=== PATIENT | male | born 1985 | race Caucasian/White ===

== ENCOUNTER 2017-08-09 18:05 | Emergency (ER) | payer OTHER ==
[~2017-08-09] VITALS: Ht 177.8 cm; Wt 81.6 kg
[2017-08-09 18:05] VITALS: BP 138/79
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
[2017-08-09] MEDS ORDERED: GELATIN SPONGE SIZE 12-7MM SPONGE. TP ONE (18:45)
[2017-08-09] MEDS ORDERED: KETOROLAC 30 MG/ML INJ. IV ONE (18:45)
[2017-08-09] MEDS ORDERED: NAPR500T PO (18:55)
--- NOTE | 2017-08-10 08:20 | RAD ---
Right ring finger, 3 views, 08/09/2017: History: Laceration A partially radiopaque bandage is projected over the distal aspect of the finger. No underlying fracture or dislocation is identified. IMPRESSION: No acute bony abnormality is detected.
== END 2017-08-09 19:00 | disposition home or self-care (01) ==
LOC: ER 18:05
DX: S61.304A Unspecified open wound of right ring finger with damage to nail, initial encounter (principal); W26.8XXA Contact with other sharp object(s), not elsewhere classified, initial encounter; Y93.89 Activity, other specified; Y92.89 Other specified places as the place of occurrence of the external cause; Y99.8 Other external cause status
CPT/HCPCS: 73140; 96374; 99284; J1885

== ENCOUNTER 2018-01-09 20:23 | Emergency (ER) | payer SELFPAY, OTHER ==
[2018-01-09 21:22] LABS: ADD MAN DIFF? NO
[2018-01-09 21:25] LABS: BASO # 0.1 x10^3/uL (0.0-0.2); BASO % 1 % (0-3); EOS # 0.1 x10^3/uL (0.0-0.7); EOS % 1 % (0-3); HEMATOCRIT 44.7 % (39.0-53.0); HEMOGLOBIN 15.5 g/dL (13.0-17.5); LYMPH # 3.3 x10^3/uL (1.0-4.8); LYMPH % 33 % (24-48); MEAN CORPUSCULAR HEMOGLOBIN 33 pg (25-35); MEAN CORPUSCULAR HGB CONC 35 g/dL (31-37); MEAN CORPUSCULAR VOLUME 95 fL (79-100); MONO # 0.7 x10^3/uL (0.0-1.1); MONO % 7 % (0-9); NEUT # 5.7 x10^3uL (1.8-7.7); NEUT % 58 % (31-73); PLATELET COUNT 264 x10^3/uL (140-400); RED BLOOD COUNT 4.69 x10^6/uL (4.30-5.70); RED CELL DISTRIBUTION WIDTH 12.9 % (11.5-14.5); WHITE BLOOD COUNT 9.7 x10^3/uL (4.0-11.0)
[2018-01-09] MEDS: ONDANSETRON PF 4 MG/2 ML VIAL. IV ×2 (21:29)
[2018-01-09] MEDS: KETOROLAC 30 MG/ML INJ. IV ×2 (21:30)
[2018-01-09 21:32] LABS: ANION GAP 6 (6-14); BLOOD UREA NITROGEN 14 mg/dL (8-26); BUN/CREATININE RATIO 14 (6-20); CALCIUM 8.6 mg/dL (8.5-10.1); CARBON DIOXIDE 33 mmol/L (21-32); CHLORIDE 103 mmol/L (98-107); GFR 87.7; GLUCOSE 104 mg/dL (70-99); POTASSIUM 4.1 mmol/L (3.5-5.1); SODIUM 142 mmol/L (136-145)
[2018-01-09] MEDS: fentaNYL PF VIAL 100 MCG/2 ML VIAL IV ×2 (21:32)
[2018-01-09] MEDS: LIDO:MAALOX:DONNATAL 1:1:1 15 ML SINGLE DOSE SWSW ×2 (21:33)
[2018-01-09 21:38] LABS: ALBUMIN/GLOBULIN RATIO 1.1 (1.0-1.7); ALK PHOS 63 U/L (46-116); ALT (SGPT) 23 U/L (16-63); AST (SGOT) 25 U/L (15-37); LIPASE 110 U/L (73-393); MAGNESIUM 2.1 mg/dL (1.8-2.4); TOTAL BILIRUBIN 0.3 mg/dL (0.2-1.0); TOTAL PROTEIN 7.5 g/dL (6.4-8.2)
[2018-01-09] MEDS ORDERED: CONTRAST GIVEN MC ×2 (21:45)
[2018-01-09 21:48] LABS: BILIRUBIN,URINE NEGATIVE (NEG); CLARITY,URINE CLOUDY; COLOR,URINE YELLOW; GLUCOSE,URINE NEGATIVE (NEG); NITRITE,URINE NEGATIVE (NEG); PH,URINE 7.5; PROTEIN,URINE 30 mg/dL (NEG-TRACE); UROBILINOGEN,URINE 0.2 mg/dL (0.2 mg/dL)
[2018-01-09 21:58] LABS: AMORPHOUS SEDIMENT,UR PRESENT /HPF; BACTERIA,URINE 0 /HPF (0-FEW); RBC,URINE 0 /HPF (0-2); WBC,URINE 0 /HPF (0-4)
[2018-01-09] MEDS: IOHEXOL 300 MG/ML 100ML VIAL. IV ×2 (22:05)
[2018-01-09] MEDS: FAMOTIDINE 20 MG TABLET. PO ×2 (22:43)
[2018-01-09] MEDS: HYDROcodone/APAP 5/325MG 1 TAB TABLET PO ×2 (22:43)
[2018-01-09] MEDS: HYOSCYAMINE 0.125 MG TAB.RAPDIS PO ×2 (22:44)
== END 2018-01-09 23:34 | disposition home or self-care (01) ==
LOC: ER 20:23
DX: K52.9 Noninfective gastroenteritis and colitis, unspecified (principal); F12.10 Cannabis abuse, uncomplicated; F11.10 Opioid abuse, uncomplicated
CPT/HCPCS: 36415; 74177; 80053; 81001; 83690; 83735; 85025; 96374; 96375; 99285-25; J1885; J2405; J3010; Q9967

== ENCOUNTER 2018-04-11 21:54 | Emergency (ER) | payer SELFPAY ==
[2018-04-11 22:23] LABS: BILIRUBIN,URINE SMALL (NEG); CLARITY,URINE CLOUDY; COLOR,URINE AMBER; GLUCOSE,URINE NEGATIVE (NEG); NITRITE,URINE NEGATIVE (NEG); PH,URINE 5.5; PROTEIN,URINE 100 mg/dL (NEG-TRACE)
[2018-04-11 22:32] LABS: BACTERIA,URINE FEW /HPF (0-FEW); RBC,URINE 20-40 /HPF (0-2); SQUAMOUS EPITHELIAL CELL,UR FEW /LPF; WBC,URINE TNTC /HPF (0-4)
[2018-04-11] MEDS: metroNIDAZOLE 500 MG TABLET PO (22:35)
[2018-04-11] MEDS: AZITHROMYCIN 250 MG TABLET. PO (22:36)
[2018-04-11] MEDS: cefTRIAXone IM 250 MG VIAL IM (22:37)
== END 2018-04-11 22:56 | disposition home or self-care (01) ==
LOC: ER 21:54
DX: R36.9 Urethral discharge, unspecified (principal); F12.10 Cannabis abuse, uncomplicated; F11.10 Opioid abuse, uncomplicated; Z79.2 Long term (current) use of antibiotics; Z79.899 Other long term (current) drug therapy
CPT/HCPCS: 36415; 81001; 87086; 87491; 87591; 96372; 99284; J0696; Q0144

== ENCOUNTER 2019-05-05 01:09 | Emergency (ER) | payer SELFPAY ==
[~2019-05-05] VITALS: Ht 177.8 cm; Wt 79.4 kg
[~2019-05-05 01:09] MED LIST: DICY10CA53 PO; HYDR-3164 PO; NAPR-683 PO; OMEP20TA63 PO
[2019-05-05 01:30] LABS: BASO % 1 % (0-3); EOS # 0.1 x10^3/uL (0.0-0.7); EOS % 2 % (0-3); HEMATOCRIT 42.4 % (39.0-53.0); LYMPH # 2.4 x10^3/uL (1.0-4.8); LYMPH % 29 % (24-48); MEAN CORPUSCULAR HEMOGLOBIN 33 pg (25-35); MEAN CORPUSCULAR HGB CONC 35 g/dL (31-37); MEAN CORPUSCULAR VOLUME 93 fL (79-100); MONO # 0.9 x10^3/uL (0.0-1.1); MONO % 11 % (0-9); NEUT % 59 % (31-73); PLATELET COUNT 282 x10^3/uL (140-400); RED BLOOD COUNT 4.57 x10^6/uL (4.30-5.70); RED CELL DISTRIBUTION WIDTH 12.9 % (11.5-14.5); WHITE BLOOD COUNT 8.5 x10^3/uL (4.0-11.0)
[2019-05-05] MEDS ORDERED: ONDANSETRON PF 4 MG/2 ML VIAL. IV ONE (01:30)
[2019-05-05] MEDS ORDERED: fentaNYL PF VIAL 100 MCG/2 ML VIAL IV ONE (01:30)
[2019-05-05 01:40] LABS: CALCIUM 9.5 mg/dL (8.5-10.1); GFR 86.6; POTASSIUM 3.5 mmol/L (3.5-5.1)
[2019-05-05 01:46] LABS: ALBUMIN 3.7 g/dL (3.4-5.0); TOTAL BILIRUBIN 0.4 mg/dL (0.2-1.0); TOTAL PROTEIN 7.4 g/dL (6.4-8.2)
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
[2019-05-05] MEDS ORDERED: MORPHINE SULFATE 4 MG/ML VIAL. IV ONE ×3 (02:45→04:30)
--- NOTE | 2019-05-05 02:49 | RAD ---
INDICATION: Trauma COMPARISON: None. TECHNIQUE: Axial CT images obtained through the head, face and cervical spine. One or more of the following individualized dose reduction techniques were utilized for this examination: 1. Automated exposure control; 2. Adjustment of the mA and/or kV according to patient size; 3. Use of iterative reconstruction technique. FINDINGS: Head: Subtle is is identified. No midline shift. Suprasellar cistern is not effaced. There is likely a small amount of subdural fluid in the right frontal region measuring up to approximately 5 mm in thickness. This is at one of the regions of pneumocephalus. Fractures are seen through the skull base extending into the facial region. Cervical spine: Fusion defect posterior arch of C1. No evidence of malalignment. A definite acute fracture line is not seen. Facial: Multiple facial fractures are identified with adjacent pneumocephalus. This includes comminuted fracture through the frontal sinus with displacement at the inner table of the calvarium. Comminuted fracture of the right maxillary sinus with blood within the sinus. There is air seen adjacent to and posterior to the orbits right greater than left. Odontogenic disease. Air within the soft tissues throughout the face. Buckling of the nasal septum with fluid in the area. Displaced fracture of nasal bone is suspected. Buckling of the medial orbital wall bilaterally concerning for fracture. IMPRESSION: 1. No definite cervical spine fracture. 2. Pneumocephalus is identified with suspicion for a small amount of subdural fluid. This pneumocephalus is likely secondary to calvarial and skull base fractures. May helpful to obtain a follow-up to ensure that there is not increasing subdural fluid to suggest subdural hematoma although there may be a trace amount at this time. No midline shift associated. 3. Extensive fractures throughout the face as well as the skull base. This includes comminuted fracture extending through the frontal sinus with associated pneumocephalus. There is also bilateral orbital wall fractures as well as fractures of the maxillary sinuses bilaterally. There is air posterior to the bilateral globes as well as air within the face and swelling. 4. Comminuted fracture involving the nasal bone and nasal septum. Electronically signed by: Theodore Roldan MD (05/05/2019 2:46 AM) [facility]
[2019-05-05 03:59] VITALS: BP 165/98
== END 2019-05-05 04:11 | disposition short-term general hospital (02) ==
LOC: ER 01:09 → EEVIPCON 01:09 → ER 04:11
DX: S02.40CA Maxillary fracture, right side, initial encounter for closed fracture (principal); S02.19XA Other fracture of base of skull, initial encounter for closed fracture; S02.0XXA Fracture of vault of skull, initial encounter for closed fracture; S02.2XXA Fracture of nasal bones, initial encounter for closed fracture; Y04.8XXA Assault by other bodily force, initial encounter; Y93.89 Activity, other specified; Y92.89 Other specified places as the place of occurrence of the external cause; Y99.8 Other external cause status
CPT/HCPCS: 36415; 70450; 70486; 72125; 80053; 85025; 96365; 96375; 96376; 99285; G0480; J0690; J2270; J2405; J3010

== ENCOUNTER 2019-08-02 11:26 | Emergency (ER) | payer SELFPAY ==
[~2019-08-02] VITALS: Ht 177.8 cm; Wt 77.1 kg
[2019-08-02 12:00] VITALS: BP 160/75
[2019-08-02] MEDS ORDERED: oxyCODONE/APAP 5/325 1 TAB TABLET PO ONE (12:15)
[2019-08-02] MEDS ORDERED: KETOROLAC 30 MG/ML VIAL. IM ONE (12:15)
[2019-08-02] MEDS ORDERED: OXYC1TAB15 PO (12:16)
--- NOTE | 2019-08-02 16:22 | PHYS DOC ---
Past Medical History Past Medical History: No Pertinent History Past Surgical History: Other Additional Past Surgical Histo: L arm FX Alcohol Use: Occasionally Drug Use: Cocaine, Marijuana, Opiates Social History Narrative: LAST USE YESTERDAY Adult General Chief Complaint Chief Complaint: HAND PROBLEM HPI HPI Patient is a 34 year old [male presents with chief complaint of hand pain and tingling more on the left. 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 Of note he is an intermittent heroin user he did shoot IV heroin into his right elbow a few days ago as well but the primary location of pain is more on the left hand than the right hand anyway. No fever at all and again no neck pain at all. Review of Systems Review of Systems Constitutional: Denies fever or chills [] Eyes: Denies change in visual acuity, redness, or eye pain [] HENT: Denies nasal congestion or sore throat [] Respiratory: Denies cough or shortness of breath [] Cardiovascular: No additional information not addressed in HPI [] GI: Denies abdominal pain, nausea, vomiting, bloody stools or diarrhea [] : Denies dysuria or hematuria [] Musculoskeletal: Integument: Neurologic: No weakness All other systems were reviewed and found to be within normal limits, except as documented in this note. Current Medications Current Medications Current Medications Medications (Trade) Dose Ordered Sig/[facility] Start Time Stop Time Status Last Admin Dose Admin Ketorolac Tromethamine (Toradol 30mg Vial) 30 mg 1X ONCE 08/02/19 12:15 08/02/19 12:16 DC 08/02/19 12:37 30 MG Oxycodone/ Acetaminophen (Percocet 5/325) 2 tab 1X ONCE 08/02/19 12:15 08/02/19 12:16 DC 08/02/19 12:37 2 TAB Allergies Allergies Allergies Coded Allergies Type Severity Reaction Last Updated Verified No Known Drug Allergies 08/09/17 No Physical Exam Physical Exam Constitutional: Well developed, well nourished, no acute distress, non-toxic appearance. [] HENT: Normocephalic, atraumatic, bilateral external ears normal, oropharynx moist, no oral exudates, nose normal. [] Eyes: PERRLA, EOMI, conjunctiva normal, no discharge. [] Neck: Normal range of motion, no tenderness, supple, no stridor. [] Abdomen: Bowel sounds normal, soft, no tenderness, no masses, no pulsatile masses. [] Skin: Warm, dry, no erythema, no rash. [] Back: No tenderness, no CVA tenderness. [] Extremities:b there is tenderness to palpation throughout the left hand no erythema or induration is identified , no clubbing, ROM intact, no edema. [] . There is a small bump overlying the right at the cubital vein no edema is noted in the right or left upper extremity. Positive phinels' test left wrist. no oslers node no splinter hemorhages Neurologic: Alert and oriented X 3, normal motor function, normal sensory function, no focal deficits noted. [] Psychologic: Affect normal, judgement normal, mood normal. [] Current Patient Data Vital Signs Vital Signs Date Time Temp Pulse Resp B/P (MAP) Pulse Ox O2 Delivery O2 Flow Rate FiO2 08/02/19 12:37 16 97 Room Air 08/02/19 12:00 97.9 86 160/75 (103) 97.9 EKG EKG [] Radiology/Procedures Radiology/Procedures [] Course & Med Decision Making Course & Med Decision Making Pertinent Labs and Imaging studies reviewed. (See chart for details) []34 yo m intermittent heroin user primry complaint left hand pain sounds like neuropathic pain,feeels hand is . positive ttp over carpal tunnel left wrist reproduces pain. is a model home sales greeter, has repetitive use he tells me. more mild symptoms right hand considered multiple other etiologies in ddx, including manufacturing systems engineer pathology however no fever normal strength no neck ttp no spinal ttp noted. no signs of endocarditis stigmata on examination. good pulses. no swelling. trial of wrist immobizilation pain control limit use of hand as much as posible, return precautions discussed specifically for any new or progressive symptoms. Dragon Disclaimer Dragon Disclaimer This electronic medical record was generated, in whole or in part, using a voice recognition dictation system. Departure Departure Impression: Primary Impression: Numbness and tingling Disposition: 01 HOME, SELF-CARE Condition: STABLE Patient Instructions: Neurapraxia Scripts Oxycodone/Apap 5-325 (PERCOCET 5-325 MG TABLET ) 1 Each Tablet 1-2 EACH PO PRN TID PRN for PAIN, #15 TAB pain Prov: NASEEM ERICKSON MD 08/02/19 NASEEM ERICKSON MD Aug 02, 2019 16:22
== END 2019-08-02 12:44 | disposition home or self-care (01) ==
LOC: ER 11:26
DX: R20.2 Paresthesia of skin (principal); M79.642 Pain in left hand
CPT/HCPCS: 29125; 96372; 99283; J1885

== ENCOUNTER 2021-03-03 21:29 | Emergency (ER) | payer SELFPAY ==
[~2021-03-03] VITALS: Ht 177.8 cm; Wt 100.0 kg
[~2021-03-03 21:29] MED LIST changes: +OXYC1TAB15 PO
[2021-03-03 21:30] VITALS: BP 137/55
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
== END 2021-03-03 23:05 | disposition home or self-care (01) ==
LOC: ER 21:29
DX: F10.129 Alcohol abuse with intoxication, unspecified (principal); R06.02 Shortness of breath; E86.0 Dehydration; R05 Cough; F17.200 Nicotine dependence, unspecified, uncomplicated; F12.90 Cannabis use, unspecified, uncomplicated; F14.90 Cocaine use, unspecified, uncomplicated; Z98.890 Other specified postprocedural states
CPT/HCPCS: 99283

== ENCOUNTER 2021-10-16 18:19 | Emergency (ER) | payer SELFPAY ==
[~2021-10-16] VITALS: Ht 177.8 cm; Wt 81.8 kg
[2021-10-16 19:20] VITALS: BP 139/62
[2021-10-16 20:42] LABS: BASO % 0 % (0-3); EOS # 0.2 x10^3/uL (0.0-0.7); EOS % 2 % (0-3); HEMATOCRIT 44.6 % (39.0-53.0); HEMOGLOBIN 15.2 g/dL (13.0-17.5); LYMPH # 1.8 x10^3/uL (1.0-4.8); LYMPH % 15 % (24-48); MEAN CORPUSCULAR HEMOGLOBIN 32 pg (25-35); MEAN CORPUSCULAR HGB CONC 34 g/dL (31-37); MEAN CORPUSCULAR VOLUME 94 fL (79-100); MONO # 0.7 x10^3/uL (0.0-1.1); MONO % 6 % (0-9); NEUT # 9.7 x10^3/uL (1.8-7.7); NEUT % 78 % (31-73); PLATELET COUNT 262 x10^3/uL (140-400); RED BLOOD COUNT 4.72 x10^6/uL (4.30-5.70); RED CELL DISTRIBUTION WIDTH 12.3 % (11.5-14.5); WHITE BLOOD COUNT 12.4 x10^3/uL (4.0-11.0)
--- NOTE | 2021-10-16 20:44 | PHYS DOC ---
Past Medical History Past Medical History: No Pertinent History Past Surgical History: Other Additional Past Surgical Histo: L arm FX Smoking Status: Current Every Day Smoker Alcohol Use: None Drug Use: Cocaine, Marijuana, Opiates General Adult EDM: Chief Complaint: INSECT BITE HPI: HPI: Patient is a 36 year old male who presents with spider bite to left forearm. Patient states he noticed the bite 2 days ago and it is increasingly gotten worse. Wound is blackened with erythema around the outside of the wound. Patient reports pain 8/10, but only with touching it. Patient reports taking ibuprofen last night which helped some. Afebrile. Patient has history of anxiety. Last tetanus 2 years ago. Patient is not vaccinated for COVID-19. Review of Systems: Review of Systems: ROS At least 10 ROS systems have been reviewed and are negative except as documented in the HPI. General: Negative except as outlined in HPI above. Skin: Negative except as outlined in HPI above. HEENT: Negative except as outlined in HPI above. Neck: Negative except as outlined in HPI above. Respiratory: Negative except as outlined in HPI above.. Cardiovascular: Negative except as outlined in HPI above. Abdomen: Negative except as outlined in HPI above. : Negative except as outlined in HPI above. Back/MSK: Negative except as outlined in HPI above. Neuro: Negative except as outlined in HPI above. Psych: Negative except as outlined in HPI above. Heart Score: C/O Chest Pain: No Risk Factors: Risk Factors: DM, Current or recent (<one month) smoker, HTN, HLP, family history of CAD, obesity. Risk Scores: Score 0 - 3: 2.5% MACE over next 6 weeks - Discharge Home Score 4 - 6: 20.3% MACE over next 6 weeks - Admit for Clinical Observation Score 7 - 10: 72.7% MACE over next 6 weeks - Early Invasive Strategies Allergies: Allergies: Allergies Coded Allergies Type Severity Reaction Last Updated Verified No Known Drug Allergies 08/09/17 No Physical Exam: PE: Constitutional: Well developed, well nourished, no acute distress, non-toxic appearance. [] HENT: Normocephalic, atraumatic, bilateral external ears normal, oropharynx moist, no oral exudates, nose normal. [] Eyes: PERRLA, EOMI, conjunctiva normal, no discharge. [] Neck: Normal range of motion, no tenderness, supple, no stridor. [] Cardiovascular:Heart rate regular rhythm, no murmur [] Lungs & Thorax: Bilateral breath sounds clear to auscultation [] Abdomen: Bowel sounds normal, soft, no tenderness, no masses, no pulsatile m asses. [] Skin: Warm, dry, erythema and swelling, left forearm, firm, eschar Back: No tenderness, no CVA tenderness. [] Extremities: No tenderness, no cyanosis, no clubbing, ROM intact, no edema. [] Neurologic: Alert and oriented X 3, normal motor function, normal sensory function, no focal deficits noted. [] Psychologic: Affect normal, judgement normal, mood normal. [] Current Patient Data: Vital Signs: Vital Signs Date Time Temp Pulse Resp B/P (MAP) Pulse Ox O2 Delivery O2 Flow Rate FiO2 10/16/21 19:20 98.6 85 18 139/62 (87) 95 Room Air 98.6 EKG: EKG: [] Radiology/Procedures: Radiology/Procedures: [] Course & Med Decision Making: Course & Med Decision Making Pertinent Labs and Imaging studies reviewed. (See chart for details) [] 36-year-old male presents with bite to left forearm. Work-up in ER consisted of labs, urinalysis. Pain treated in ER. Patient is afebrile. Patient being sent home with antibiotics to treat infection. Patient given first dose here. Patient given clinic resources due to not having PCP. Advised patient he needs to call make a follow-up appointment tomorrow to have wound evaluated. Gino Disclaimer: Gino Disclaimer: This electronic medical record was generated, in whole or in part, using a voice recognition dictation system. Departure Departure Impression: Primary Impression: Spider bite wound Qualified Codes: T63.304A - Toxic effect of unspecified spider venom, undetermined, initial encounter Disposition: HOME / SELF CARE / HOMELESS Condition: STABLE Referrals: NO PCP (PCP) Patient Instructions: Spider Bite, [id number] Additional Instructions: You were seen in the ED for spider bite to right forearm. I am sending you home with antibiotics to treat. You were given first does in the the ED. I have given you a list of clinics to call for follow up.Please call tomorrow to make an appointment for follow up and further management. Please return to the ED with worseing symptoms or concerns. EMERGENCY DEPARTMENT GENERAL DISCHARGE INSTRUCTIONS THANK YOU for coming to [facility] Emergency Department (ED) today and trusting us with your care. We trust that you had a positive experience in our Emergency Department. If you wish to speak to the department Management you can contact the departmental secretary at . YOUR FOLLOW UP INSTRUCTIONS ARE FOLLOWS: Do you have a private doctor? If you do not have a private doctor, please ask for a resource list of physicians or clinics that may be able to assist you with follow up care. The Emergency Physician has interpreted your x-rays. The X-ray specialist will also review them. If there is a change in the findings you will be notified in 48 hours when at all possible. A lab test or lab culture may have been done, your results will be reviewed and you will be notified if you need a change in treatment. ADDITIONAL INSTRUCTIONS AND INFORMATION Your care today has been supervised by a physician who is specially trained in emergency care. Many problems require more than one evaluation for a complete diagnosis and treatment. We recommend that you schedule your follow up appointment as recommended to ensure complete treatment of your illness or injury. If you are unable to obtain follow up care and continue to have a problem, or if your condition worsens we recommend that you return to the ED. We are not able to safely determine your condition over the phone nor are we able to give sound medical advice over the phone. For these safety reasons, if you call for medical advice we will ask you to come to the ED for further evaluation If you have any questions regarding these discharge instructions please call the ED at . SAFETY INFORMATION In the interest of safety, wellness, and injury prevention; we encourage you to wear your seatbelt, if you smoke; quit smoking, and we encourage your family to use protective helmet for bicycling and other sporting events that present an increased risk for head injury. IF YOUR SYMPTOMS WORSEN OR NEW SYMPTOMS DEVELOP, OR YOU HAVE CONCERNS ABOUT YOUR CONDITION; OR IF YOUR CONDITION WORSENS WHILE YOU ARE WAITING FOR YOUR FOLLOW UP APPOINTMENT; EITHER CONTACT YOUR PRIMARY CARE DOCTOR, THE PHYSICIAN WHOSE NAME AND NUMBER YOU WERE GIVEN, OR RETURN TO THE ED IMMEDIATELY. RYLIE BUNN APRN Oct 16, 2021 20:44
[2021-10-16] MEDS ORDERED: fentaNYL PF VIAL 100 MCG/2 ML VIAL IVP ONE (20:45)
[2021-10-16] MEDS ORDERED: ONDANSETRON PF 4 MG/2 ML VIAL. IVP ONE (20:45)
[2021-10-16 20:49] LABS: BILIRUBIN,URINE NEGATIVE (NEG); CLARITY,URINE CLEAR; COLOR,URINE YELLOW; NITRITE,URINE NEGATIVE (NEG); PH,URINE 5.5 (<5.0-8.0); PROTEIN,URINE NEGATIVE (NEG-TRACE); UROBILINOGEN,URINE 0.2 mg/dL (0.2 mg/dL)
[2021-10-16 20:56] LABS: BACTERIA,URINE 0 /HPF (0-FEW); RBC,URINE 0 /HPF (0-2); WBC,URINE 0 /HPF (0-4)
[2021-10-16] MEDS ORDERED: CLINDAMYCIN HCL 150 MG CAPSULE. PO ONE (21:15)
[2021-10-16] MEDS ORDERED: CLIN150C16 PO (21:48)
[2021-10-16 22:04] LABS: CALCIUM 8.8 mg/dL (8.5-10.1); CREATININE 0.9 mg/dL (0.7-1.3); GFR 96.6
[2021-10-16 22:10] LABS: ALBUMIN 3.7 g/dL (3.4-5.0); TOTAL BILIRUBIN 0.4 mg/dL (0.2-1.0); TOTAL PROTEIN 7.4 g/dL (6.4-8.2)
--- NOTE | 2021-10-17 03:12 | EKG ---
[facility] [address] [place] [address] Test Date: 2021-10-16 Test Time: 20:37:38 Pat Name: KANIKA BRUNER Department: Room: Gender: M Wedding Makeup Artist: : 1985 Requested By: RYLIE BUNN Order Number: [id number] Reading MD: Deny Floyd Measurements Intervals [place] Rate: 87 P: NE: QRS: 39 QRSD: 96 T: 38 QT: 338 QTc: 407 Interpretive Statements SINUS RHYTHM Electronically Signed On 10-21-2021 9:34:02 DATA LIBRARIAN by Deny Floyd
== END 2021-10-16 22:30 | disposition home or self-care (01) ==
LOC: ER 18:19
DX: T63.301A Toxic effect of unspecified spider venom, accidental (unintentional), initial encounter (principal); F17.200 Nicotine dependence, unspecified, uncomplicated; Y92.89 Other specified places as the place of occurrence of the external cause
CPT/HCPCS: 36415; 80053; 81001; 82550; 83605; 85025; 93005; 96374; 96375; 99284; J2405; J3010

== ENCOUNTER 2022-01-26 19:42 | Emergency (ER) | payer SELFPAY ==
[~2022-01-26] VITALS: Ht 177.8 cm; Wt 84.0 kg
[~2022-01-26 19:42] MED LIST changes: +CLIN150C16 PO
[2022-01-26 20:05] VITALS: BP 176/96
--- NOTE | 2022-01-26 20:19 | PHYS DOC ---
Past Medical History Past Medical History: No Pertinent History Additional Past Medical Histor: BROKEN RIBS Past Surgical History: Other Additional Past Surgical Histo: L arm FX Smoking Status: Current Every Day Smoker Alcohol Use: None Drug Use: Cocaine, Marijuana, Opiates General Adult EDM: Chief Complaint: RIB PAIN HPI: HPI: Patient is a 36 year old male who presents here with left sided rib pain, for about 1 week. He was helping build a deck about a week ago, and he fell against one of the 2 x 10 pieces of wood. No other injury or trauma since that time. He denies any chest pressure. Denies dyspnea. Denies pleuritic pain. Denies cough or mopped assist. He denies abdominal pain, denies urinary symptoms. Denies constipation or diarrhea. He has taken [id number] medications with no relief. He reports that the pain is worse today. The pain is worse with movement, palpation. He has not sought care or evaluation until today. Review of Systems: Review of Systems: Constitutional: Denies fever or chills. [] HENT: Denies nasal congestion or sore throat. [] Respiratory: Denies cough or shortness of breath. [] Cardiovascular: Denies chest pain pressure, denies peripheral edema. Left anterior and lateral rib pain. GI: Denies abdominal pain, nausea, vomiting, or diarrhea : Denies urinary symptoms, denies gross hematuria Musculoskeletal: Reports left-sided anterior and lateral rib pain Integument: Denies rash, denies lacerations, abrasions or contusions Neurologic: Denies headache, focal weakness or sensory changes. [] Psychiatric: Denies depression or anxiety. [] Heart Score: C/O Chest Pain: No Risk Factors: Risk Factors: DM, Current or recent (<one month) smoker, HTN, HLP, family history of CAD, obesity. Risk Scores: Score 0 - 3: 2.5% MACE over next 6 weeks - Discharge Home Score 4 - 6: 20.3% MACE over next 6 weeks - Admit for Clinical Observation Score 7 - 10: 72.7% MACE over next 6 weeks - Early Invasive Strategies Allergies: Allergies: Allergies Coded Allergies Type Severity Reaction Last Updated Verified No Known Drug Allergies 08/09/17 No Physical Exam: PE: Constitutional: Well developed, well nourished, no acute distress, non-toxic appearance. [] HENT: Normocephalic, atraumatic Eyes: Conjunctiva normal, no discharge. [] Neck: Trachea midline, no JVD, no tenderness Cardiovascular:Heart rate regular rhythm, +2 radial pulses bilaterally, warm and well-perfused, no edema Lungs & Thorax: Lungs are clear to auscultation bilaterally without rales, rhonchi, wheezes, inspiratory splinting noted. Palpation of the left anterior and lateral lower ribs reproduces tenderness. No palpable crepitus or step-offs or subcutaneous emphysema. Equal chest rise. No evidence of thorax or chest wall trauma, contusion, abrasion or laceration. Abdomen: Abdomen is soft, nondistended, nontender to palpation. No CVA tenderness. No flank abdominal ecchymoses. No palpable masses organomegaly Skin: Warm, dry, no erythema, no rash. No lacerations or abrasions or ecchymoses noted. Back: No tenderness, no CVA tenderness. [] Extremities: Limb deformity, no peripheral edema Neurologic: Alert and oriented X 3, normal motor function, normal sensory function, no focal deficits noted. [] Psychologic: Affect normal, judgement normal, mood normal. [] Current Patient Data: Vital Signs: Vital Signs Date Time Temp Pulse Resp B/P (MAP) Pulse Ox O2 Delivery O2 Flow Rate FiO2 01/26/22 20:05 98.0 81 20 176/96 (122) 98 Room Air 98.0 EKG: EKG: [] Radiology/Procedures: Radiology/Procedures: IMAGING REPORT Signed PATIENT: KANIKA BRUNER ACCOUNT: [id number] : 1985 LOCATION: ER AGE: 36 SEX: M EXAM STATUS: REG ER ORD. PHYSICIAN: PILLO QUARLES DO REASON: rib pain, fall last week PROCEDURE: RIBS LEFT AND PA CHEST Single view chest and left-sided rib study dated 01/26/2022. COMPARISON: None. INDICATION: Pain after fall. FINDINGS: Single upright view the chest shows normal heart and mediastinal contours. Lungs are clear. No consolidation or pleural effusion. No pneumothorax. Dedicated views of left-sided ribs show nondisplaced fractures of the eighth and ninth posterior lateral left ribs. No additional bony abnormality. IMPRESSION: 1. Nondisplaced fractures of the eighth and ninth posterior lateral left ribs. 2. Clear lungs. No pneumothorax. Electronically signed by: Abdulaziz Machado MD (01/26/2022 9:03 PM) [facility] [place] DICTATED and SIGNED BY: ABDULAZIZ MACHADO MD DATE: 01/26/22 [id number] Course & Med Decision Making: Course & Med Decision Making Pertinent Labs and Imaging studies reviewed. (See chart for details) IM Toradol, IM morphine and p.o. [place] given here for pain control. I discussed the findings, differential diagnosis and plan of care with the patient. He does have evidence of nondisplaced rib fractures. No pneumothorax is noted. I discussed home care instructions. I explained that rib fractures can be very painful and can take many weeks to heal. He asked about possibility of having a wrap around his thorax, and I explained her this is dangerous, which may lead atelectasis or pneumonia. I encouraged him to continue taking plenty of deep breaths, coughing when necessary. I recommend smoking cessation. Strict return precautions given. He verbalizes understanding and is comfortable with the plan of care. Gino Disclaimer: Gino Disclaimer: This electronic medical record was generated, in whole or in part, using a voice recognition dictation system. Departure Departure Impression: Primary Impression: Multiple fractures of ribs, left side, initial encounter for closed fracture Disposition: 01 HOME / SELF CARE / HOMELESS Condition: STABLE Referrals: NO PCP (PCP) Patient Instructions: Rib Fracture Additional Instructions: Use the medications as needed/as directed. Please return to the ER for more severe pain, if you develop a fever 100.4 or higher, severe cough, coughing up blood, any new or acute injury or for any other concerns. Please follow-up with your primary care physician. You may alternate ice and heat on the area, avoid any heavy lifting or strenuous activity. Make sure to take plenty of deep breaths to avoid getting pneumonia or lung collapse. Scripts Cyclobenzaprine Hcl (CYCLOBENZAPRINE HCL) 10 Mg Tablet 1 TAB PO BID for muscle spasm, #20 TAB Prov: WILLAMPILLO DO 01/26/22 Hydrocodone Bit/Acetaminophen (HYDROCODONE-APAP 5-325 ) 1 Tab Tablet 1 TAB PO PRN Q6HRS PRN for PAIN, #30 TAB 0 Refills Prov: PILLO QUARLES DO 01/26/22 PILLO QUARLES DO Jan 26, 2022 20:19
[2022-01-26] MEDS ORDERED: KETOROLAC 60 MG/2 ML VIAL. IM ONE (20:30)
[2022-01-26] MEDS ORDERED: HYDROcodone/APAP 5/325MG 1 TAB TABLET PO ONE (20:30)
--- NOTE | 2022-01-26 21:05 | RAD ---
Single view chest and left-sided rib study dated 01/26/2022. COMPARISON: None. INDICATION: Pain after fall. FINDINGS: Single upright view the chest shows normal heart and mediastinal contours. Lungs are clear. No consol idation or pleural effusion. No pneumothorax. Dedicated views of left-sided ribs show nondisplaced fractures of the eighth and ninth posterior late ral left ribs. No additional bony abnormality. IMPRESSION: 1. Nondisplaced fractures of the eighth and ninth posterior lateral left ribs. 2. Clear lungs. No pneumothorax. Electronically signed by: Abdulaziz Machado MD (01/26/2022 9:03 PM) [facility]
[2022-01-26] MEDS ORDERED: CYCL10TA19 PO (21:42)
[2022-01-26] MEDS ORDERED: HYDR-2761 PO (21:42)
[2022-01-26] MEDS ORDERED: MORPHINE SULFATE 4 MG/ML INJ. IM ONE (22:00)
== END 2022-01-26 21:54 | disposition home or self-care (01) ==
LOC: ER 19:42
DX: S22.42XA Multiple fractures of ribs, left side, initial encounter for closed fracture (principal); F17.200 Nicotine dependence, unspecified, uncomplicated; W18.39XA Other fall on same level, initial encounter; Y93.89 Activity, other specified; Y92.89 Other specified places as the place of occurrence of the external cause; Y99.8 Other external cause status
CPT/HCPCS: 71101; 96372; 99284; J1885; J2270